=== PATIENT | female | born 1935 | race Asian ===

== ENCOUNTER 2024-03-04 18:10 | Inpatient (IN) | payer MEDICARE, OTHER ==
[~2024-03-04] VITALS: Ht 157.5 cm; Wt 67.1 kg
[~2024-03-04 18:10] MED LIST: ENOX40DI SQ
[2024-03-04 20:45] LABS: BASOPHILS # (AUTO) 0.1 K/uL (0.0-0.2); BASOPHILS % (AUTO) 0.4 % (0.0-2.0); EOSINOPHILS # (AUTO) 0.1 K/uL (0.0-0.7); EOSINOPHILS % (AUTO) 0.6 % (0.0-6.0); HEMATOCRIT 29 % (33-45); LYMPHOCYTES # (AUTO) 1.9 K/uL (0.8-4.8); LYMPHOCYTES % (AUTO) 14.8 % (20.0-44.0); MEAN CORPUSCULAR HEMOGLOBIN 32 PG (26.0-33.0); MEAN CORPUSCULAR HGB CONC 34 g/dl (31.0-36.0); MEAN CORPUSCULAR VOLUME 93 fL (82-100); MONOCYTES # (AUTO) 0.9 K/uL (0.1-1.30); NEUTROPHILS # (AUTO) 9.9 K/uL (1.8-8.9); NEUTROPHILS % (AUTO) 77.2 % (43.0-81.0); PLATELET COUNT (AUTO) 436 K/uL (150-450); RED BLOOD CELL COUNT(AUTO) 3.17 MIL/uL (4.0-5.2); RED CELL DISTRIBUTION WIDTH 13.6 % (11.5-15.0); WHITE BLOOD COUNT (AUTO) 12.8 K/uL (4.3-11.0)
[2024-03-04 20:58] LABS: CALCIUM, SERUM 8.2 mg/dL (8.5-10.1); CARBON DIOXIDE 26 mmol/L (21-32); CHLORIDE 107 mmol/L (98-107); CREATININE 1.1 mg/dL (0.6-1.3); GLUCOSE 156 mg/dL (74-106); POTASSIUM 3.6 mmol/L (3.5-5.1); SODIUM SERUM 138 mmol/L (136-145); UREA NITROGEN, BLOOD 22 mg/dL (7-18)
[2024-03-04 21:04] LABS: ALANINE AMINOTRANSFERASE 18 U/L (12-78); ALBUMIN 2.7 g/dL (3.4-5.0); ALKALINE PHOSPHATASE 230 U/L (46-116); ASPARTATE AMINOTRANSFERASE 21 U/L (15-37); BILIRUBIN,DIRECT 0.2 mg/dL (0.0-0.2); BILIRUBIN,TOTAL 0.7 mg/dL (0.2-1.0); LIPASE 56 U/L (16-77); TOTAL PROTEIN, SERUM 6.4 g/dL (6.4-8.2)
[2024-03-04] MEDS ORDERED: IV NS 0.9% 250 ML IV ONE (21:11)
[2024-03-04] MEDS ORDERED: IOHEXOL-300 100 ML VIAL IV ONE (21:11)
[2024-03-04 22:24] LABS: APPEARANCE,URINE CLOUDY (CLEAR); BILIRUBIN,URINE NEGATIVE (NEGATIVE); BLOOD, URINE 3+ Ery/uL (NEGATIVE); COLOR,URINE YELLOW (YELLOW); KETONES,URINE NEGATIVE (NEGATIVE); LEUKOCYTE ESTERASE ,URINE 1+ (NEGATIVE); NITRITE, URINE POSITIVE (NEGATIVE); PH,URINE 7.5 (5.0-8.0); PROTEIN,URINE 2+ mg/dl (NEGATIVE); UGLUCOSE NEGATIVE (NEGATIVE)
[2024-03-04 22:34] LABS: ADD URINE CULTURE YES; BACTERIA,URINE Many /HPF (None Seen); SQUAMOUS EPITHELIAL CELL,UR None Seen /HPF (None Seen); WBC,URINE TOO NUMEROUS TO COUN /HPF (0-3)
[2024-03-04 22:36] LABS: RBC,URINE TOO NUMEROUS TO COUN /HPF (0-2)
[2024-03-05] MEDS ORDERED: ONDANSETRON HCL/PF 4 MG/2 ML VIAL IVP PRN
[2024-03-05] MEDS ORDERED: MAGNESIUM HYDROXIDE 30 ML UDC PO PRN
[2024-03-05] MEDS ORDERED: Z GUARD REMEDY 4 OZ OINT TP PRN
[2024-03-05] MEDS ORDERED: DEXTROSE 50%-WATER 50 ML DISP.SYRIN IV PRN
[2024-03-05] MEDS ORDERED: MAG HYDROX/AL HYDROX/SIMETH 30 ML UDC PO PRN
[2024-03-05] MEDS: ENOXAPARIN SODIUM 40 MG/0.4 ML DISP.SYRIN SQ SCH
[2024-03-05] MEDS ORDERED: CEFTRIAXONE 1GM BAG (ER ONLY) 50 ML IV ONE (00:55)
[2024-03-05] MEDS: CEFTRIAXONE 1 G in IV D5W 50 ML IV ONE (01:03)
[2024-03-05] MEDS ORDERED: ENOXAPARIN SODIUM 40 MG/0.4 ML DISP.SYRIN SQ ONE (02:16)
[2024-03-05 05:42] LABS: BASOPHILS # (AUTO) 0.1 K/uL (0.0-0.2); BASOPHILS % (AUTO) 0.5 % (0.0-2.0); EOSINOPHILS # (AUTO) 0.1 K/uL (0.0-0.7); EOSINOPHILS % (AUTO) 0.9 % (0.0-6.0); HEMATOCRIT 29 % (33-45); HEMOGLOBIN 9.8 g/dL (11.5-14.8); LYMPHOCYTES # (AUTO) 2.3 K/uL (0.8-4.8); LYMPHOCYTES % (AUTO) 20.2 % (20.0-44.0); MEAN CORPUSCULAR HEMOGLOBIN 31 PG (26.0-33.0); MEAN CORPUSCULAR HGB CONC 34 g/dl (31.0-36.0); MEAN CORPUSCULAR VOLUME 92 fL (82-100); MONOCYTES # (AUTO) 0.7 K/uL (0.1-1.30); MONOCYTES % (AUTO) 6.5 % (2.0-12.0); NEUTROPHILS # (AUTO) 8.1 K/uL (1.8-8.9); NEUTROPHILS % (AUTO) 71.9 % (43.0-81.0); PLATELET COUNT (AUTO) 440 K/uL (150-450); RED CELL DISTRIBUTION WIDTH 13.3 % (11.5-15.0); WHITE BLOOD COUNT (AUTO) 11.3 K/uL (4.3-11.0)
[2024-03-05 06:01] LABS: CALCIUM, SERUM 8.4 mg/dL (8.5-10.1); PHOSPHORUS 2.6 mg/dL (2.5-4.9); POTASSIUM 3.5 mmol/L (3.5-5.1)
[2024-03-05] MEDS: PANTOPRAZOLE 40 MG TABLET.DR PO SCH (07:30)
[2024-03-05] MEDS: BLOOD SUGAR DIAGNOSTIC 1 EACH STRIP IN SCH (08:19)
[2024-03-05] MEDS ORDERED: METO-357 PO (08:39)
[2024-03-05] MEDS ORDERED: HYDR-3972 PO (08:39)
[2024-03-05] MEDS ORDERED: ALOG6.252 PO (08:39)
[2024-03-05] MEDS ORDERED: RISP0.5T65 PO (08:39)
[2024-03-05] MEDS ORDERED: MAGN400T26 PO (08:39)
[2024-03-05] MEDS ORDERED: INSU100I4 SQ (08:39)
[2024-03-05] MEDS ORDERED: DONE5TAB34 PO (08:39)
[2024-03-05] MEDS ORDERED: POLY17PO4 PO (08:39)
[2024-03-05] MEDS ORDERED: MULT-213 PO (08:39)
[2024-03-05] MEDS ORDERED: ACET325T53 PO (08:39)
[2024-03-05] MEDS ORDERED: DOCU100C36 PO (08:39)
[2024-03-05] MEDS ORDERED: AMLO-212 PO (08:39)
[2024-03-05] MEDS ORDERED: SERT50TA12 PO (08:39)
[2024-03-05] MEDS ORDERED: INSU100I26 SQ (08:39)
[2024-03-05] MEDS ORDERED: LOSA100T31 PO (08:39)
[2024-03-05] MEDS ORDERED: CALC-261 PO (08:39)
[2024-03-05] MEDS ORDERED: PANTOPRAZOLE 40 MG TABLET.DR PO ONE (08:43)
[2024-03-05] MEDS: INSULIN REGULAR, HUMAN 100 UNIT/ML 3 ML VIAL SQ PRN (08:51)
[2024-03-05] MEDS ORDERED: POLYETHYLENE GLYCOL 3350 17 GM POWD.PACK PO PRN (16:00)
[2024-03-05] MEDS ORDERED: ACETAMINOPHEN 325 MG TABLET PO PRN ×2 (16:00)
[2024-03-05] MEDS: DOCUSATE SODIUM 100 MG CAPSULE PO SCH (16:21)
[2024-03-05] MEDS: SERTRALINE HCL 50 MG TABLET PO SCH (16:21)
[2024-03-05] MEDS: risperiDONE 0.25 MG TABLET PO SCH (16:21)
[2024-03-05] MEDS: METOPROLOL SUCCINATE 50 MG TAB.SR.24H PO SCH (16:23)
[2024-03-05 20:00] VITALS: BP 157/73; TEMP 98.3; O2SAT 98
[2024-03-05] MEDS: METRONIDAZOLE 500MG/ NS 100ML 500 MG in PREMIX 1 EA IV SCH (20:57)
[2024-03-05] MEDS: CEFTRIAXONE 1 G in IV D5W 50 ML IV SCH (22:18)
[2024-03-05] MEDS: INSULIN GLARGINE, 100 UNIT/ML CARTRIDGE SQ SCH (22:38)
[2024-03-06] MEDS: HYDROCODONE/APAP 5/325MG TABLET PO PRN (03:04)
[2024-03-06 04:35] VITALS: BP 152/62; TEMP 99.5; O2SAT 98
[2024-03-06 08:15] LABS: CALCIUM, SERUM 8.3 mg/dL (8.5-10.1); CREATININE 1.1 mg/dL (0.6-1.3); POTASSIUM 3.6 mmol/L (3.5-5.1)
[2024-03-06] MEDS: DONEPEZIL 5 MG TABLET PO SCH (08:33)
[2024-03-06] MEDS: CALCIUM CARB 600MG /VIT D 1 EACH TABLET PO SCH (08:33)
[2024-03-06] MEDS: MAGNESIUM OXIDE 400 MG TABLET PO SCH (08:33)
[2024-03-06] MEDS: LOSARTAN POTASSIUM 50 MG TABLET PO SCH (08:34)
[2024-03-06] MEDS: AMLODIPINE BESYLATE 5 MG TABLET PO SCH (08:35)
[2024-03-06] MEDS: MULTIVITAMINS,THERAGRAN 1 UDTAB TABLET PO SCH (08:40)
[2024-03-06 12:00] VITALS: BP 141/59; TEMP 98.3; O2SAT 98
[2024-03-06 20:00] VITALS: BP 153/65; TEMP 99; O2SAT 99
[2024-03-07 04:00] VITALS: BP 149/62; TEMP 98.8; O2SAT 99
[2024-03-07 09:32] LABS: CALCIUM, SERUM 8.5 mg/dL (8.5-10.1); CREATININE 0.9 mg/dL (0.6-1.3); POTASSIUM 3.7 mmol/L (3.5-5.1)
[2024-03-07 09:42] LABS: BASOPHILS # (AUTO) 0.1 K/uL (0.0-0.2); BASOPHILS % (AUTO) 0.9 % (0.0-2.0); EOSINOPHILS # (AUTO) 0.1 K/uL (0.0-0.7); HEMATOCRIT 29 % (33-45); HEMOGLOBIN 9.9 g/dL (11.5-14.8); LYMPHOCYTES # (AUTO) 2.6 K/uL (0.8-4.8); LYMPHOCYTES % (AUTO) 28.6 % (20.0-44.0); MEAN CORPUSCULAR HEMOGLOBIN 31 PG (26.0-33.0); MEAN CORPUSCULAR HGB CONC 34 g/dl (31.0-36.0); MEAN CORPUSCULAR VOLUME 92 fL (82-100); MONOCYTES # (AUTO) 0.5 K/uL (0.1-1.30); MONOCYTES % (AUTO) 5.9 % (2.0-12.0); NEUTROPHILS # (AUTO) 5.8 K/uL (1.8-8.9); NEUTROPHILS % (AUTO) 63.6 % (43.0-81.0); PLATELET COUNT (AUTO) 516 K/uL (150-450); RED BLOOD CELL COUNT(AUTO) 3.15 MIL/uL (4.0-5.2); RED CELL DISTRIBUTION WIDTH 13.3 % (11.5-15.0); WHITE BLOOD COUNT (AUTO) 9.1 K/uL (4.3-11.0)
[2024-03-07 12:00] VITALS: BP 148/95; TEMP 98.5; O2SAT 99
[2024-03-07 20:00] VITALS: BP 147/54; TEMP 98.4; O2SAT 98
[2024-03-08 04:00] VITALS: BP 160/58; TEMP 97.5; O2SAT 99
[2024-03-08 08:00] VITALS: BP 158/62; TEMP 98.8; O2SAT 99
[2024-03-08 11:56] VITALS: BP 160/67
[2024-03-08] MEDS: hydrALAZINE HCL 50 MG TABLET PO ONE (11:56)
== END 2024-03-08 14:02 | DRG 371 ==
LOC: ER 18:10 → TRANSITION 03-05 00:51 → MEDSG1 03-05 09:35
PROVIDERS: ADMIT Nurse Practitioner Family; ATTEND Nurse Practitioner Acute Care
DX: A04.9 Bacterial intestinal infection, unspecified (principal); G93.41 Metabolic encephalopathy; D68.59 Other primary thrombophilia; N39.0 Urinary tract infection, site not specified; M48.56XA Collapsed vertebra, not elsewhere classified, lumbar region, initial encounter for fracture; D63.8 Anemia in other chronic diseases classified elsewhere; E83.51 Hypocalcemia; I10 Essential (primary) hypertension; K21.9 Gastro-esophageal reflux disease without esophagitis; D72.829 Elevated white blood cell count, unspecified; G30.9 Alzheimer's disease, unspecified; F02.80 Dementia in other diseases classified elsewhere, unspecified severity, without behavioral disturbance, psychotic disturbance, mood disturbance, and anxiety; E11.9 Type 2 diabetes mellitus without complications; Z74.09 Other reduced mobility; R53.1 Weakness; B96.89 Other specified bacterial agents as the cause of diseases classified elsewhere
CPT/HCPCS: 36415; 71045-TC; 80048-TC; 80076-TC; 81001; 82962-TC; 83690-TC; 83735-TC; 84100-TC; 84484-TC; 85025-TC; 87040-TC; 87086-TC; 97110-TC; 97112-TC; 97116-TC; 97530-TC; A4216; G0378; J0696; J1650; J1815; J2405; J7050; J7060; Q9967